=== PATIENT | female | born 2000 | race African-American/Black ===

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

== ENCOUNTER 2021-08-18 16:39 | Emergency (ER) | payer OTHER ==
[2021-08-18 16:47] VITALS: BP 127/79; PULSE 91; TEMP 97.9; BMI 32.9
[2021-08-18] MEDS ORDERED: IBUPROFEN 400 MG TABLET (FP) PO ONE ×2 (18:10→18:17)
== END 2021-08-18 18:19 | disposition home or self-care (01) ==
LOC: JER 16:39 → JERFT 16:39
DX: M79.651 Pain in right thigh (principal)
CPT/HCPCS: 99283-25

== ENCOUNTER 2023-06-18 16:09 | Emergency (ER) | payer OTHER ==
[2023-06-18 16:19] VITALS: BP 135/77; PULSE 99; RESP 18; TEMP 98.4; BMI 38.0
== END 2023-06-18 18:54 | disposition home or self-care (01) ==
LOC: JERFT 16:09 → JER 16:09 → JERFT 18:54
DX: N91.2 Amenorrhea, unspecified (principal)
CPT/HCPCS: 99282-25

== ENCOUNTER 2023-09-23 21:47 | Emergency (ER) | payer OTHER ==
[2023-09-23 22:00] VITALS: BP 133/57; PULSE 95; RESP 19; TEMP 98; BMI 38.2
[2023-09-23 22:28] LABS: EPI CELLS 5 /uL (0-25.1); HYALINE CASTS 0 /uL (0-3.1); URINE APPEARANCE CLEAR; URINE BACTERIA 11 /uL (0-1359); URINE BILIRUBIN NEGATIVE (NEGATIVE); URINE COLOR YELLOW; URINE GLUCOSE (UA) NEGATIVE (NEGATIVE); URINE KETONE NEGATIVE (NEGATIVE); URINE LEUK ESTERASE NEGATIVE (NEGATIVE); URINE NITRITE NEGATIVE (NEGATIVE); URINE PROTEIN NEGATIVE (NEGATIVE); URINE RBC 19 /uL (0-23.9); URINE WBC 8 /uL (0-25.8)
[2023-09-23 22:29] LABS: HCG,QUALITATIVE URINE Negative
[2023-09-23 23:02] LABS: BASO % 0.6 % (0-2.0); EOS % 2.5 % (0-4.5); HEMATOCRIT 39.5 % (32.4-45.2); HEMOGLOBIN 13.4 GM/dL (10.7-15.3); LYMPH % 45.1 % (8-40); MCH 28.5 pg (25.7-33.7); MCHC 33.9 g/dl (32.0-36.0); MEAN PLT VOLUME 7.3 fl (7.5-11.1); MONO % 4.1 % (3.8-10.2); NEUT % 47.7 % (42.8-82.8); PLATELET COUNT 350 10^3/uL (134-434); RBC 4.71 M/mm3 (3.60-5.2); RDW 15.1 % (11.6-15.6); WHITE BLOOD COUNT 8.5 K/mm3 (4.0-10.0)
[2023-09-23 23:30] LABS: POTASSIUM 3.8 mmol/L (3.5-5.1)
[2023-09-23 23:33] LABS: ALBUMIN 3.3 g/dl (3.4-5.0); BLOOD UREA NITROGEN 14.5 mg/dL (7-18); CALCIUM 9.7 mg/dL (8.5-10.1)
[2023-09-23 23:36] LABS: CREATININE 0.7 mg/dL (0.55-1.3)
[2023-09-23 23:38] LABS: BILIRUBIN,TOTAL 0.1 mg/dL (0.2-1)
== END 2023-09-24 00:49 | disposition home or self-care (01) ==
LOC: JER 21:47
DX: N93.9 Abnormal uterine and vaginal bleeding, unspecified (principal); R31.9 Hematuria, unspecified; R10.30 Lower abdominal pain, unspecified
CPT/HCPCS: 36415; 80053; 81003; 84703; 85025; 87086; 99283-25